=== PATIENT | male | born 1965 ===

== ENCOUNTER 2024-11-25 08:00 | Inpatient (IN) | payer OTHER ==
[~2024-11-25] VITALS: Ht 172.7 cm; Wt 80.7 kg
[2024-11-25] MEDS ORDERED: NORVASC5 MG PO (09:22)
[2024-11-25] MEDS ORDERED: DIOVAN320 MG PO (09:22)
[2024-11-25 09:31] VITALS: BP 154/90
[2024-11-25 09:58] LABS: PH,URINE 6.5 (5.0-8.0); URINE APPEARANCE Clear; URINE BILIRRUBIN Negative (NEGATIVE); URINE BLOOD Negative; URINE COLOR Yellow; URINE GLUCOSE Negative (NEGATIVE); URINE KETONE 15 (NEGATIVE); URINE LEUKOCYTE Negative; URINE NITRATE Negative; URINE PROTEIN Negative (NEGATIVE); URINE UROBILINOGEN 0.2 E.U./dl
[2024-11-25 10:04] LABS: URINE BACTERIA 1.2 uL (0.0-1933); URINE EPITHELIAL CELLS 0.4 uL (0.0-38.8); URINE RBC 0.8 uL (0.0-20.8); URINE WBC 0.7 uL (0.0-23.2)
[2024-11-25 10:18] LABS: HEMOGLOBIN 16.1 g/dL (13-16.00); MEAN CELL VOLUME 89.5 fL (80.0-100.00); MEAN CORPUSCULAR HEMOGLOBIN 30.6 pg (27.00-32.0); MEAN CORPUSCULAR HGB CONC 34.2 g/dl (32.0-36.0); PLATELET COUNT 172 K/uL (150-450); RED BLOOD COUNT 5.25 M/uL (4.00-6.00); RED CELL DISTRIBUTION WIDTH 13.6 % (11.5-14.5)
[2024-11-25 10:30] LABS: INR 1.05; PARTIAL THROMBOPLASTIN TIME 27.9 SECONDS (22.0-34.0); PROTHROMBIN TIME 11.4 SECONDS (9.0-11.5)
[2024-11-25 10:56] LABS: CALCIUM 9.2 mg/dL (8.5-10.1); CREATININE SERUM 0.98 mg/dL (0.70-1.30); GFR 78.56; POTASSIUM 3.94 mEq/L (3.5-5.1)
[2024-11-25 11:24] LABS: RH POSITIVE
[2024-11-29] MEDS ORDERED: ENOXAPARIN SODIUM 40 MG/0.4 ML SYRINGE SUBCUTANEO ONE (08:16)
[2024-11-29] MEDS ORDERED: BUPIVACAINE HCL/MPF 0.5% 30ML VIAL ONE (08:16)
[2024-11-29] MEDS ORDERED: LIDOCAINE HCL 1%/EPINEPHRINE 20ML VIAL IJ ONE ×2 (08:16→08:21)
[2024-11-29] MEDS ORDERED: CEFAZOLIN SODIUM 1,000 MG VIAL ONE ×2 (08:17→17:17)
[2024-11-29] MEDS ORDERED: ONDANSETRON HCL 2 MG/ML VIAL IV PRN (08:30)
[2024-11-29] MEDS ORDERED: CEFAZOLIN SODIUM 1,000 MG VIAL IV SCH (09:00)
[2024-11-29] MEDS ORDERED: DEXTROSE 5 %-0.45 % SOD CHLORD 1,000 ML IV SCH (09:00)
[2024-11-29] MEDS ORDERED: MORPHINE SULFATE 2 MG/ML CARTRIDGE IV PRN (09:38)
[2024-11-29] MEDS ORDERED: ENALAPRILAT DIHYDRATE 2.5 MG/2 ML VIAL IV PRN (11:45)
[2024-11-29] MEDS ORDERED: SUGAMMADEX SODIUM 200 MG/2 ML VIAL IV ONE (13:39)
[2024-11-29] MEDS ORDERED: SUGAMMADEX SODIUM 200 MG/2 ML VIAL IV SCH (15:00)
[2024-11-29] MEDS ORDERED: MORPHINE SULFATE 4 MG/ML VIAL IV ONE ×2 (15:35→16:40)
[2024-11-29] MEDS ORDERED: SIMETHICONE 125 MG CAPSULE PO SCH (17:00)
[2024-11-29] MEDS ORDERED: DOCUSATE SODIUM 100MG CAP PO SCH (17:00)
[2024-11-29] MEDS ORDERED: FAMOtidine 20 MG TABLET PO SCH (17:00)
[2024-11-29 17:45] VITALS: BP 181/98; O2SAT 95
[2024-11-29 23:17] VITALS: BP 166/93; O2SAT 99
[2024-11-30 02:30] VITALS: BP 165/93
[2024-11-30 05:41] VITALS: BP 167/94; O2SAT 99
[2024-11-30 07:19] LABS: HEMATOCRIT 40.8 % (39.0-48.0); HEMOGLOBIN 13.7 g/dL (13-16.00); MEAN CELL VOLUME 90.7 fL (80.0-100.00); MEAN CORPUSCULAR HEMOGLOBIN 30.3 pg (27.00-32.0); MEAN CORPUSCULAR HGB CONC 33.5 g/dl (32.0-36.0); PLATELET COUNT 146 K/uL (150-450); RED CELL DISTRIBUTION WIDTH 13.3 % (11.5-14.5)
[2024-11-30 07:26] VITALS: BP 163/89; O2SAT 99
[2024-11-30 07:47] LABS: CREATININE SERUM 1.07 mg/dL (0.70-1.30); GFR 70.98; POTASSIUM 3.69 mEq/L (3.5-5.1)
[2024-11-30] MEDS ORDERED: AMLODIPINE BESYLATE 5 MG TABLET PO SCH (09:00)
[2024-11-30] MEDS ORDERED: PATIENTS OWN MEDICATION (MEDICAMENTO EN PISO) PO SCH (09:00)
[2024-11-30] MEDS ORDERED: ENOXAPARIN SODIUM 40 MG/0.4 ML SYRINGE SUBCUTANEO NR (10:00)
[2024-11-30 15:30] VITALS: BP 162/94; O2SAT 99
[2024-11-30] MEDS ORDERED: KETOROLAC TROMETHAMINE 30 MG VIAL ONE (20:23)
[2024-11-30] MEDS ORDERED: hydrALAZINE HCL 25 MG TABLET PO ONE (20:27)
[2024-11-30] MEDS ORDERED: KETOROLAC TROMETHAMINE 30 MG VIAL IV ONE (20:45)
[2024-11-30] MEDS ORDERED: hydrALAZINE HCL 25 MG TABLET PO PRN (20:45)
[2024-11-30 23:58] VITALS: BP 140/87; O2SAT 96
[2024-12-01 08:10] VITALS: BP 138/92; O2SAT 95
[2024-12-01 08:15] LABS: CALCIUM 8.5 mg/dL (8.5-10.1); CREATININE SERUM 1.22 mg/dL (0.70-1.30); GFR 61.01; POTASSIUM 4.18 mEq/L (3.5-5.1)
[2024-12-01 08:20] LABS: HEMATOCRIT 39.5 % (39.0-48.0); HEMOGLOBIN 13.6 g/dL (13-16.00); MEAN CELL VOLUME 89.2 fL (80.0-100.00); MEAN CORPUSCULAR HEMOGLOBIN 30.7 pg (27.00-32.0); MEAN CORPUSCULAR HGB CONC 34.5 g/dl (32.0-36.0); PLATELET COUNT 147 K/uL (150-450); RED BLOOD COUNT 4.43 M/uL (4.00-6.00); RED CELL DISTRIBUTION WIDTH 13.6 % (11.5-14.5)
[2024-12-01] MEDS ORDERED: ENOXAPARIN SODIUM 40 MG/0.4 ML SYRINGE SUBCUTANEO SCH (09:00)
[2024-12-01 11:38] VITALS: BP 149/93; O2SAT 97
[2024-12-01] MEDS ORDERED: NA PHOS,M-B/NA PHOS,DI-BA 1 BOTTLE ENEMA RECTAL NR (16:00)
[2024-12-01 16:03] VITALS: BP 145/93; O2SAT 96
[2024-12-02 00:30] VITALS: BP 131/83; O2SAT 98
[2024-12-02 08:00] VITALS: BP 146/95; O2SAT 98
== END 2024-12-02 12:04 | disposition home or self-care (01) | DRG 658 ==
LOC: O/R 11-29 05:33 → SURH 11-29 08:00 → SURG 11-29 15:23
PROVIDERS: ADMIT Urology; ATTEND Urology
PROC: 0TT04ZZ Resection of Right Kidney, Percutaneous Endoscopic Approach (ICD-10-PCS; principal; 2024-11-30)
DX: C64.1 Malignant neoplasm of right kidney, except renal pelvis (principal); C64.2 Malignant neoplasm of left kidney, except renal pelvis